=== PATIENT | female | born 1970 | race Caucasian/White ===

== ENCOUNTER 2021-11-30 12:17 | Emergency (ER) | payer OTHER ==
[2021-11-30] MEDS ORDERED: CYCLOBENZAPRINE10 MG PO (14:46)
[2021-11-30] MEDS ORDERED: IBUPROFEN600 MG PO (14:46)
== END 2021-11-30 14:55 | disposition home or self-care (01) ==
LOC: ER1 12:17
DX: S06.0X9A Concussion with loss of consciousness of unspecified duration, initial encounter (principal); I12.9 Hypertensive chronic kidney disease with stage 1 through stage 4 chronic kidney disease, or unspecified chronic kidney disease; N18.9 Chronic kidney disease, unspecified; V43.92XA Unspecified car occupant injured in collision with other type car in traffic accident, initial encounter; Y92.410 Unspecified street and highway as the place of occurrence of the external cause
CPT/HCPCS: 70450; 71260; 72125; 73630; 96374; 96375; 99284; J2270; J2405; Q9967